=== PATIENT | male | born 1960 | race Caucasian/White ===

== ENCOUNTER → 2018-01-06 | Outpatient (CLI) | payer OTHER ==
[~2018-01-06] VITALS: Ht 193 cm; Wt 104.3 kg
[~2018-01-06] MED LIST: ASPIRIN EC81 M1 PO; CINNAMON500 MG PO; COREG6.25 MG PO; ECHINACEA80 MG PO; FISH OIL 1,001000 M2 PO; METFORMIN HCL500 MG PO; RYTHMOL PO; TUMERIC PO
--- NOTE | ~2018-01-06 | P ---
[facility] [place] [address] PROCEDURE REPORT Name: PENG OCHOA Room #: REG [facility].#: [id number] Admission: 01/06/18 Attend Phys: Veto Cordero MD Discharge: Date of : 56 Report #: [id number] THIS REPORT FOR: //name// CC: Alan Cordero PREOPERATIVE DIAGNOSIS: Supraventricular tachycardia. POSTOPERATIVE DIAGNOSIS: Typical atrioventricular brooklynn reentrant tachycardia. PROCEDURES PERFORMED: 1. SVT ablation, CPT code 67831. 2. EP with left atrial pacing and recording, CPT code 64043. 3. Program stimulation and pacing after IV drug infusion, CPT code 86815. 4. 3D mapping, CPT code 18330. HISTORY OF PRESENT ILLNESS: The patient is a 57-year-old with a history of recurrent supraventricular tachycardia. Recently went to the Emergency Room with SVT that looked to be consistent with typical AV brooklynn reentrant tachycardia that terminated with a Valsalva maneuver in the ER. He is here for EP study and possible ablation. ANESTHESIA: The patient underwent MAC anesthesia with no anesthesia related complications. DESCRIPTION OF PROCEDURE: The patient underwent informed consent. We discussed the details of the procedure including the risk, which include but not limited to bleeding, vascular damage, stroke, OK as well as damage to the [place] conduction system requiring permanent pacemaker. He understood these risks and is willing to proceed. The patient was brought to the EP Laboratory in fasting and sedated state, prepped and draped in a sterile fashion. I injected lidocaine to the bilateral groin regions and obtained access to the bilateral femoral veins, placing an 8 and 6-[place] short sheath in the right femoral vein and a 6 and 7-[place] short sheath in the left femoral vein using the modified Seldinger technique. Next, under fluoroscopy, I placed a decapolar catheter easily in the coronary sinus and 3 quadripolar catheters at the HRA, His and RV positions. The patient was in sinus rhythm with sinus cycle length of 890 milliseconds, P interval 180 milliseconds, QRS duration 100 milliseconds, QT interval 375 milliseconds, AH interval 90 milliseconds and HV interval 48 milliseconds. Atrial burst pacing was performed and AV block was noted at 350 milliseconds. No SVT was induced. Next, a single atrial extrastimuli were delivered, and the fast pathway ERP was noted at 380 milliseconds at a [address] cycle length with evidence of a 50 millisecond AH jump. Atrial ERP was noted at 320 milliseconds at a [address] cycle length[address] With double [facility] [address] [place] [address] PROCEDURE REPORT Name: PENG OCHOA Room #: REG [facility].#: [id number] Admission: 01/06/18 Attend Phys: Veto Cordero MD Discharge: Date of : 56 Report #: [id number] atrial extrastimuli, the patient would have short runs of SVT with a tachycardia cycle length of around 340 milliseconds and a septal VA time of 35 milliseconds. These would consistently terminate with an atrial signal consistent with typical AV brooklynn reentrant tachycardia. Ventricular pacing was performed and VA block was noted at 400 milliseconds and V ERP was noted at 250 milliseconds at a [address] cycle length with evidence of both decremental and midline VA conduction. Isoproterenol was initiated at 1 mcg per minute, and with atrial burst pacing, the patient would have short runs of SVT that would consistently terminate within it. Atrial ERP was noted 290 milliseconds at [address] cycle length, and again, the patient would have nonsustained episodes of AVNRT lasting around 20 beats, but I could not entrain those. Isoproterenol was increased to 2 mcg per minute, and this time, I was able to get sustained runs of AVNRT, although they worked easily inducible. I was finally able to perform ventricular entrainment, and this demonstrated a VAHV response consistent with typical AV brooklynn reentry tachycardia. There was also some nonspecific runs of atrial tachycardia with double atrial extrastimuli on the higher dose of isoproterenol that were likely of no clinical significance. 3D mapping and ablation: I exchanged my HRA catheter and sheath for a SR0 sheath and a 4-mm Biosense Glez ablation catheter. A detailed 3D geometry of the right atrium was created with specific emphasis of the His region, slow pathway region and the coronary sinus ostium. Next, several initial ablation lesions were performed. These first lesions would result in an atrial tachycardia that would conduct in a 1:1 fashion, but I came off due to their rates. There was never any evidence of compromised conduction with these little bursts of AT. I then started moving up a little bit higher, and again, there was some slower atrial tachycardia, but these were not junctional beats. Then, on lesions 7 and 8, I finally got some nice slow junctionals. Therefore, post-ablation testing was now performed. Post-ablation, the patient was started back on isoproterenol 2 mcg per minute. AV block was noted to be 290 milliseconds. VA block was noted to be less than 270 milliseconds. I delivered single and double atrial extrastimuli. We could no longer induce SVT. We would occasionally get a rare single AV brooklynn echo right before the patient would demonstrate AV brooklynn ERP. We tested for 20-30 minutes on isoproterenol and finally turned this off. Continued testing off isoproterenol AV block was around 400 milliseconds. AV brooklynn ERP was noted at 340 milliseconds, with a [address] cycle length. Post-ablation, the patient was in sinus rhythm with a sinus cycle length of 755 milliseconds, WV interval 140 milliseconds, QRS duration 80 milliseconds, QT interval 355 milliseconds, AH interval 91 milliseconds and HV interval 42 milliseconds. As such, the patient was no longer inducible for AV brooklynn reentrant tachycardia. The procedure was concluded. Catheters and sheaths were [facility] [address] [place] [address] PROCEDURE REPORT Name: PENG OCHOA Room #: REG [facility].#: [id number] Admission: 01/06/18 Attend Phys: Veto Cordero MD Discharge: Date of : 56 Report #: [id number]. Hemostasis was obtained, and the patient awoke neurologically and hemodynamically intact. No complications and no significant bleeding. CONCLUSIONS: 1. Successful ablation of typical AV brooklynn reentrant tachycardia. 2. Normal SA brooklynn function. 3. Normal AV brooklynn function. 4. Normal His-Purkinje function. 5. No other inducible arrhythmias on or off isoproterenol. By: [id number] Veto Cordero MD /nt
[2018-01-06 07:31] VITALS: BP 136/87
[2018-01-06 07:46] LABS: ABSOLUTE NEUTROPHILS 3.2 thou/uL (1.4-8.2); BASOPHILS 1.5 % (0.0-2.0); EOSINOPHILS 3.1 % (0.0-3.0); HEMATOCRIT 45.1 % (42.0-52.0); HEMOGLOBIN 15.8 gm/dL (14.0-18.0); LYMPHOCYTES 43.3 % (24.0-44.0); MCH 32.3 pg (26.0-34.0); MCV 92.4 fL (80.0-100.0); PLATELET COUNT 249 thou/uL (150-400); POLYS 43.1 % (36.0-66.0); RBC 4.88 mil/uL (4.50-6.00); RDW 13.1 % (10.5-14.5); WBC 7.4 thou/uL (4.0-11.0)
[2018-01-06 07:54] LABS: CALCIUM 9.2 mg/dL (8.5-10.1); CREATININE 1.2 mg/dL (0.7-1.3); POTASSIUM 4.2 mmol/L (3.5-5.1)
[2018-01-06 07:57] LABS: APTT 28.9 Seconds (24.5-32.8); PROTIME 9.9 Seconds (9.3-11.4)
[2018-01-06 07:59] LABS: ALBUMIN 4.2 g/dL (3.4-5.0); TOTAL BILIRUBIN 0.3 mg/dL (<0.1-1.0); TOTAL PROTEIN 8.3 g/dL (6.4-8.2)
== END | disposition home or self-care (01) ==
LOC: CATH 06:58
PROVIDERS: Internal Medicine Cardiovascular Disease
DX: I47.1 Supraventricular tachycardia (principal); I48.91 Unspecified atrial fibrillation; E11.9 Type 2 diabetes mellitus without complications; Z98.890 Other specified postprocedural states; Z79.01 Long term (current) use of anticoagulants; Z79.82 Long term (current) use of aspirin; Z79.899 Other long term (current) drug therapy
CPT/HCPCS: 70005